=== PATIENT | female | born 1935 | race Caucasian/White ===

== ENCOUNTER 2017-11-07 08:32 | Inpatient (IN) | payer OTHER ==
[~2017-11-07] VITALS: Ht 147.3 cm; Wt 46.8 kg
[~2017-11-07 08:32] MED LIST: BENICAR HCT 401 EAC1 PO; CELEXA40 MG PO; CITALOPRAM HBR40 M1 PO; NEXIUM20 MG PO; NORVASC10 MG PO; Procardia XL,Adalat PO; TENORMIN100 MG PO
[2017-11-07 09:00] LABS: HEMATOCRIT 37.8 % (36.0-46.0); HEMOGLOBIN 13.2 G/DL (11.9-15.5); MCH 30.3 PG (29.0-34.0); MCHC 34.9 G/DL (30.0-36.0); MCV 86.9 FL (83-99); PLATELET COUNT 230 K/uL (156-360); RBC DIS.WIDTH-CV 12.6 % (11.8-14.6); RBC DIS.WIDTH-SD 40.4 % (39-53); RED BLOOD COUNT 4.35 M/uL (3.80-5.20); WHITE BLOOD COUNT 6.1 K/uL (4.1-10.2)
[2017-11-07 09:09] LABS: CHLORIDE 104 mEq/L (99-109); POTASSIUM 4.6 mEq/L (3.7-5.4); SODIUM 136 mEq/L (136-147)
[2017-11-07 09:10] LABS: GLUCOSE 102 mg/dL (70-99)
[2017-11-07 09:14] LABS: CREATININE 0.9 mg/dL (0.6-1.3); GFR ESTIMATE (CALCULATED) > 59 mL/min/
[2017-11-07 09:15] LABS: UREA NITROGEN (BUN) 19 mg/dL (9-23)
[2017-11-07] MEDS ORDERED: CELEXA20 MG PO (13:55)
[2017-11-07] MEDS ORDERED: LITE COAT ASPI325 M1 PO (13:57)
[2017-11-07] MEDS ORDERED: NORVASC10 MG PO (13:57)
[2017-11-07 16:08] LABS: HEMATOCRIT 35.1 % (36.0-46.0); HEMOGLOBIN 12.4 G/DL (11.9-15.5); MCV 86.5 FL (83-99)
[2017-11-07 18:24] VITALS: BP 176/77
[2017-11-07 19:14] VITALS: BP 183/79
[2017-11-07 23:37] VITALS: BP 133/99
[2017-11-08 04:33] VITALS: BP 148/62
[2017-11-08 06:58] LABS: HEMATOCRIT 32.1 % (36.0-46.0); HEMOGLOBIN 10.9 G/DL (11.9-15.5); MCH 29.6 PG (29.0-34.0); MCV 87.2 FL (83-99); PLATELET COUNT 165 K/uL (156-360); RBC DIS.WIDTH-CV 12.5 % (11.8-14.6); RBC DIS.WIDTH-SD 40.3 % (39-53); RED BLOOD COUNT 3.68 M/uL (3.80-5.20); WHITE BLOOD COUNT 7.8 K/uL (4.1-10.2)
[2017-11-08 07:21] LABS: CHLORIDE 101 MEQ/L (99-109); CREATININE 0.9 MG/DL (0.6-1.3); GFR ESTIMATE (CALCULATED) > 59 mL/min/; GLUCOSE 103 mg/dL (70-99); SODIUM 134 MEQ/L (136-147); UREA NITROGEN (BUN) 19 mg/dL (9-23)
[2017-11-08 08:12] VITALS: BP 160/69
[2017-11-08 15:52] VITALS: BP 124/56
[2017-11-09 00:21] VITALS: BP 138/70
[2017-11-09 08:02] VITALS: BP 159/72
[2017-11-09 09:21] LABS: HEMATOCRIT 30.7 % (36.0-46.0); HEMOGLOBIN 10.3 G/DL (11.9-15.5); MCH 29.3 PG (29.0-34.0); MCHC 33.6 G/DL (30.0-36.0); MCV 87.5 FL (83-99); PLATELET COUNT 154 K/uL (156-360); RBC DIS.WIDTH-CV 12.4 % (11.8-14.6); RBC DIS.WIDTH-SD 39.3 % (39-53); RED BLOOD COUNT 3.51 M/uL (3.80-5.20); WHITE BLOOD COUNT 7.8 K/uL (4.1-10.2)
[2017-11-09 09:46] LABS: CHLORIDE 98 MEQ/L (99-109); CREATININE 0.8 MG/DL (0.6-1.3); GFR ESTIMATE (CALCULATED) > 59 mL/min/; GLUCOSE 103 mg/dL (70-99); POTASSIUM 4.1 MEQ/L (3.7-5.4); SODIUM 131 MEQ/L (136-147); UREA NITROGEN (BUN) 20 mg/dL (9-23)
[2017-11-09 16:18] VITALS: BP 152/72
[2017-11-09 23:38] VITALS: BP 146/60
[2017-11-10 06:49] LABS: HEMATOCRIT 27.5 % (36.0-46.0); HEMOGLOBIN 9.6 G/DL (11.9-15.5); MCH 29.7 PG (29.0-34.0); MCHC 34.9 G/DL (30.0-36.0); MCV 85.1 FL (83-99); PLATELET COUNT 161 K/uL (156-360); RBC DIS.WIDTH-SD 37.7 % (39-53); RED BLOOD COUNT 3.23 M/uL (3.80-5.20); WHITE BLOOD COUNT 8.7 K/uL (4.1-10.2)
[2017-11-10 08:13] VITALS: BP 152/91
[2017-11-10] MEDS ORDERED: TRAMADOL HCL50 MG PO (10:44)
[2017-11-10 15:42] VITALS: BP 125/67
[2017-11-10 23:22] VITALS: BP 146/65
[2017-11-11 07:32] VITALS: BP 156/68
[2017-11-11 07:57] LABS: HEMATOCRIT 26.9 % (36.0-46.0); HEMOGLOBIN 9.4 G/DL (11.9-15.5); MCH 29.9 PG (29.0-34.0); MCHC 34.9 G/DL (30.0-36.0); MCV 85.7 FL (83-99); PLATELET COUNT 196 K/uL (156-360); RBC DIS.WIDTH-CV 12.3 % (11.8-14.6); RBC DIS.WIDTH-SD 38.4 % (39-53); RED BLOOD COUNT 3.14 M/uL (3.80-5.20); WHITE BLOOD COUNT 6.9 K/uL (4.1-10.2)
[2017-11-11 08:21] LABS: CHLORIDE 96 MEQ/L (99-109); CREATININE 0.8 MG/DL (0.6-1.3); GFR ESTIMATE (CALCULATED) > 59 mL/min/; GLUCOSE 114 mg/dL (70-99); POTASSIUM 4.3 MEQ/L (3.7-5.4); SODIUM 127 MEQ/L (136-147); UREA NITROGEN (BUN) 26 mg/dL (9-23)
[2017-11-11 15:31] VITALS: BP 128/71
[2017-11-11 23:09] VITALS: BP 150/70
[2017-11-12 06:34] LABS: HEMATOCRIT 28.3 % (36.0-46.0); MCHC 35.3 G/DL (30.0-36.0); PLATELET COUNT 248 K/uL (156-360); RBC DIS.WIDTH-CV 12.3 % (11.8-14.6); RBC DIS.WIDTH-SD 37.5 % (39-53); RED BLOOD COUNT 3.33 M/uL (3.80-5.20); WHITE BLOOD COUNT 7.9 K/uL (4.1-10.2)
[2017-11-12 07:01] LABS: CHLORIDE 94 MEQ/L (99-109); CREATININE 0.7 MG/DL (0.6-1.3); GFR ESTIMATE (CALCULATED) > 59 mL/min/; GLUCOSE 124 mg/dL (70-99); POTASSIUM 4.2 MEQ/L (3.7-5.4); SODIUM 128 MEQ/L (136-147); UREA NITROGEN (BUN) 22 mg/dL (9-23)
[2017-11-12 07:34] VITALS: BP 171/69
[2017-11-12 16:02] VITALS: BP 137/62
[2017-11-12 23:22] VITALS: BP 145/68
[2017-11-13 06:57] LABS: CHLORIDE 97 MEQ/L (99-109); CREATININE 0.9 MG/DL (0.6-1.3); GFR ESTIMATE (CALCULATED) > 59 mL/min/; GLUCOSE 115 mg/dL (70-99); SODIUM 130 MEQ/L (136-147); UREA NITROGEN (BUN) 30 mg/dL (9-23)
[2017-11-13 08:45] VITALS: BP 139/61
[2017-11-13] MEDS ORDERED: SODIUM CHLORIDE1 G1 PO (09:58)
[2017-11-13] MEDS ORDERED: MEGESTROL400 MG/10 PO (09:58)
[2017-11-13] MEDS ORDERED: TRAMADOL HCL50 MG PO (12:22)
== END 2017-11-13 13:16 | DRG 964 ==
LOC: EME 08:32 → EDOF 15:26 → ENRESERV 15:31 → 3EAST 17:53
PROVIDERS: Emergency Medicine; Hospitalist; Internal Medicine; Physician Assistant; Physician Assistant Medical
DX: S32.592A Other specified fracture of left pubis, initial encounter for closed fracture (principal); S72.001A Fracture of unspecified part of neck of right femur, initial encounter for closed fracture; S32.591A Other specified fracture of right pubis, initial encounter for closed fracture; E87.1 Hypo-osmolality and hyponatremia; D64.9 Anemia, unspecified; F32.9 Major depressive disorder, single episode, unspecified; I10 Essential (primary) hypertension; K21.9 Gastro-esophageal reflux disease without esophagitis; E78.5 Hyperlipidemia, unspecified; W10.9XXA Fall (on) (from) unspecified stairs and steps, initial encounter; Z79.82 Long term (current) use of aspirin; E22.2 Syndrome of inappropriate secretion of antidiuretic hormone; Z79.899 Other long term (current) drug therapy; R29.6 Repeated falls
CPT/HCPCS: 70450; 71045; 73502; 73560; 74176; 80048; 83930; 83935; 84300; 85014; 85018; 85027; 85610; 94799; 97530 GP; 99281; 99285; A6214; G0378; J1644; J3010; J7030

== ENCOUNTER 2017-11-24 11:58 | Inpatient (IN) | payer OTHER ==
[2017-11-24] VITALS (7 sets, daily range): BP systolic 139–171; BP diastolic 60–82
[~2017-11-24] VITALS: Ht 149.9 cm; Wt 41.4 kg
[~2017-11-24 11:58] MED LIST changes: +CELEXA20 MG PO; +LITE COAT ASPI325 M1 PO; +MEGESTROL400 MG/10 PO; +SODIUM CHLORIDE1 G1 PO; +TRAMADOL HCL50 MG PO
[2017-11-24 12:26] LABS: HEMATOCRIT 20.1 % (36.0-46.0); MCH 29.6 PG (29.0-34.0); MCHC 34.3 G/DL (30.0-36.0); MCV 86.3 FL (83-99); PLATELET COUNT 531 K/uL (156-360); RBC DIS.WIDTH-CV 13.8 % (11.8-14.6); RED BLOOD COUNT 2.33 M/uL (3.80-5.20); WHITE BLOOD COUNT 8.8 K/uL (4.1-10.2)
[2017-11-24 12:27] LABS: HEMOGLOBIN 6.9 G/DL (11.9-15.5)
[2017-11-24 12:33] LABS: INTER. NORMALIZED RATIO 1.2
[2017-11-24 12:35] LABS: ALBUMIN 2.9 g/dL (3.2-4.8); CHLORIDE 105 mEq/L (99-109); SODIUM 133 mEq/L (136-147)
[2017-11-24 12:36] LABS: PTT 26.6 SEC (25-37)
[2017-11-24 12:37] LABS: GLUCOSE 105 mg/dL (70-99); TOTAL PROTEIN 5.5 g/dL (6.4-8.3)
[2017-11-24 12:39] LABS: TOTAL BILIRUBIN 0.4 mg/dL (0.0-1.0)
[2017-11-24 12:41] LABS: ALKALINE PHOSPHATASE 122 IU/L (3-129); CREATININE 0.7 mg/dL (0.6-1.3); GFR ESTIMATE (CALCULATED) > 59 mL/min/
[2017-11-24 12:42] LABS: UREA NITROGEN (BUN) 24 mg/dL (9-23)
[2017-11-24 12:43] LABS: AST (GOT) 14 IU/L (2-34)
[2017-11-24 12:44] LABS: ALT (GPT) 7 IU/L (3-49)
[2017-11-24 12:47] LABS: TROP-I INTERPRETATION NEGATIVE; TROPONIN-I < 0.01 ng/mL (0.0-0.30)
[2017-11-24] MEDS ORDERED: MILK OF MAGN PO (13:27)
[2017-11-24] MEDS ORDERED: DULCOLAX10 MG PR (13:30)
[2017-11-24] MEDS ORDERED: REMEDY CALAZIM113 G2 TP (13:32)
[2017-11-24] MEDS ORDERED: MELATONIN3 MG PO (13:34)
[2017-11-24] MEDS ORDERED: TRAMADOL HCL50 MG PO (13:36)
[2017-11-24] MEDS ORDERED: PAIN & FEVER500 MG PO (13:36)
[2017-11-24] MEDS ORDERED: COLACE100 MG PO (13:37)
[2017-11-25 00:21] VITALS: BP 155/62
[2017-11-25 03:42] VITALS: BP 150/68
[2017-11-25 05:53] LABS: HEMATOCRIT 24.8 % (36.0-46.0); HEMOGLOBIN 8.4 G/DL (11.9-15.5); MCH 28.6 PG (29.0-34.0); MCHC 33.9 G/DL (30.0-36.0); MCV 84.4 FL (83-99); PLATELET COUNT 483 K/uL (156-360); RBC DIS.WIDTH-CV 14.4 % (11.8-14.6); RBC DIS.WIDTH-SD 44.2 % (39-53); WHITE BLOOD COUNT 7.7 K/uL (4.1-10.2)
[2017-11-25 05:54] LABS: RED BLOOD COUNT 2.94 M/uL (3.80-5.20)
[2017-11-25 06:23] LABS: CHLORIDE 105 MEQ/L (99-109); CREATININE 0.6 MG/DL (0.6-1.3); GFR ESTIMATE (CALCULATED) > 59 mL/min/; GLUCOSE 73 mg/dL (70-99); POTASSIUM 3.6 MEQ/L (3.7-5.4); SODIUM 132 MEQ/L (136-147); UREA NITROGEN (BUN) 13 mg/dL (9-23)
[2017-11-25 07:22] VITALS: BP 151/76
[2017-11-25 10:03] LABS: STOOL OCCULT BLD 1ST SPECIMEN POSITIVE
[2017-11-25 15:24] VITALS: BP 144/89
[2017-11-25 19:48] VITALS: BP 138/80
[2017-11-26] VITALS (7 sets, daily range): BP systolic 134–168; BP diastolic 61–70
[2017-11-27 03:43] VITALS: BP 150/78
[2017-11-27 06:23] LABS: HEMATOCRIT 24.1 % (36.0-46.0); HEMOGLOBIN 8.1 G/DL (11.9-15.5); MCH 29.1 PG (29.0-34.0); MCHC 33.6 G/DL (30.0-36.0); MCV 86.7 FL (83-99); PLATELET COUNT 524 K/uL (156-360); RBC DIS.WIDTH-CV 14.6 % (11.8-14.6); RBC DIS.WIDTH-SD 45.2 % (39-53); RED BLOOD COUNT 2.78 M/uL (3.80-5.20); WHITE BLOOD COUNT 14.3 K/uL (4.1-10.2)
[2017-11-27 06:51] LABS: CHLORIDE 100 MEQ/L (99-109); CREATININE 0.6 MG/DL (0.6-1.3); GFR ESTIMATE (CALCULATED) > 59 mL/min/; GLUCOSE 76 mg/dL (70-99); SODIUM 129 MEQ/L (136-147); UREA NITROGEN (BUN) 13 mg/dL (9-23)
[2017-11-27 07:38] VITALS: BP 138/64
[2017-11-27 10:59] VITALS: BP 135/64
[2017-11-27 15:52] VITALS: BP 134/63
[2017-11-27] MEDS ORDERED: ATENOLOL100 MG PO (19:22)
[2017-11-27] MEDS ORDERED: VALACYCLOVIR500 MG PO (19:22)
== END 2017-11-27 20:04 | disposition home or self-care (01) | DRG 812 ==
LOC: EME 11:58 → EDOF 12:40 → 2EAST 12:40 → ENRESERV 12:50 → 2EAST 15:57
PROVIDERS: Emergency Medicine; Family Medicine
PROC: 30233N1 Transfusion of Nonautologous Red Blood Cells into Peripheral Vein, Percutaneous Approach (ICD-10-PCS; principal; 2017-11-24)
PROC: 0DJ08ZZ Inspection of Upper Intestinal Tract, Via Natural or Artificial Opening Endoscopic (ICD-10-PCS; 2017-11-26)
DX: D62 Acute posthemorrhagic anemia (principal); F32.9 Major depressive disorder, single episode, unspecified; I10 Essential (primary) hypertension; K21.9 Gastro-esophageal reflux disease without esophagitis; E78.5 Hyperlipidemia, unspecified; E87.1 Hypo-osmolality and hyponatremia; K92.2 Gastrointestinal hemorrhage, unspecified; M19.90 Unspecified osteoarthritis, unspecified site; S72.101D Unspecified trochanteric fracture of right femur, subsequent encounter for closed fracture with routine healing; L50.9 Urticaria, unspecified; Z53.9 Procedure and treatment not carried out, unspecified reason; T80.92XA Unspecified transfusion reaction, initial encounter; Z68.1 Body mass index [BMI] 19.9 or less, adult; S32.511D Fracture of superior rim of right pubis, subsequent encounter for fracture with routine healing; W18.30XD Fall on same level, unspecified, subsequent encounter; K44.9 Diaphragmatic hernia without obstruction or gangrene; Z53.09 Procedure and treatment not carried out because of other contraindication; Z95.5 Presence of coronary angioplasty implant and graft; Z86.718 Personal history of other venous thrombosis and embolism
CPT/HCPCS: 74176; 80048; 80053; 82272; 84484; 85027; 85610; 85730; 86850; 86880; 86900; 86901; 86920; 92610 GN; 93005; C9113; J2765; J7030; P9016

== ENCOUNTER 2017-12-01 16:38 | Inpatient (IN) | payer OTHER ==
[~2017-12-01] VITALS: Ht 149.9 cm; Wt 41.0 kg
[~2017-12-01 16:38] MED LIST changes: +ATENOLOL100 MG PO; +COLACE100 MG PO; +DULCOLAX10 MG PR; +MELATONIN3 MG PO; +MILK OF MAGN PO; +PAIN & FEVER500 MG PO; +REMEDY CALAZIM113 G2 TP; +VALACYCLOVIR500 MG PO
[2017-12-01 18:05] LABS: HEMATOCRIT 17.7 % (36.0-46.0); HEMOGLOBIN 6.1 G/DL (11.9-15.5); MCH 29.9 PG (29.0-34.0); MCHC 34.5 G/DL (30.0-36.0); MCV 86.8 FL (83-99); PLATELET COUNT 536 K/uL (156-360); RBC DIS.WIDTH-CV 15.4 % (11.8-14.6); RBC DIS.WIDTH-SD 47.3 % (39-53); RED BLOOD COUNT 2.04 M/uL (3.80-5.20); WHITE BLOOD COUNT 10.8 K/uL (4.1-10.2)
[2017-12-01 18:10] LABS: CHLORIDE 102 mEq/L (99-109); SODIUM 131 mEq/L (136-147)
[2017-12-01 18:12] LABS: GLUCOSE 98 mg/dL (70-99)
[2017-12-01 18:16] LABS: CREATININE 0.8 mg/dL (0.6-1.3); GFR ESTIMATE (CALCULATED) > 59 mL/min/
[2017-12-01 18:17] LABS: UREA NITROGEN (BUN) 21 mg/dL (9-23)
[2017-12-01 18:20] LABS: TROP-I INTERPRETATION NEGATIVE; TROPONIN-I < 0.01 ng/mL (0.0-0.30)
[2017-12-01] MEDS ORDERED: BENGAY GREASELE57 GM TP (19:26)
[2017-12-01] MEDS ORDERED: FEOSOL325 MG PO (19:26)
[2017-12-01] MEDS ORDERED: CENTRUM SILVER1 EAC4 PO (19:27)
[2017-12-01 19:43] VITALS: BP 118/59
[2017-12-01 20:01] VITALS: BP 138/64
[2017-12-01 21:01] VITALS: BP 144/63
[2017-12-01 21:49] VITALS: BP 136/66
[2017-12-01 23:02] VITALS: BP 152/65
[2017-12-01 23:51] VITALS: BP 152/65
[2017-12-02 05:43] LABS: HEMATOCRIT 26.5 % (36.0-46.0); MCH 29.6 PG (29.0-34.0); MCHC 34.3 G/DL (30.0-36.0); MCV 86.3 FL (83-99); PLATELET COUNT 472 K/uL (156-360); RBC DIS.WIDTH-CV 14.9 % (11.8-14.6); WHITE BLOOD COUNT 8.6 K/uL (4.1-10.2)
[2017-12-02 06:01] LABS: CHLORIDE 102 MEQ/L (99-109); CREATININE 0.7 MG/DL (0.6-1.3); GFR ESTIMATE (CALCULATED) > 59 mL/min/; GLUCOSE 69 mg/dL (70-99); POTASSIUM 3.8 MEQ/L (3.7-5.4); SODIUM 131 MEQ/L (136-147); UREA NITROGEN (BUN) 16 mg/dL (9-23)
[2017-12-02 06:22] LABS: HEMOGLOBIN 9.1 G/DL (11.9-15.5); RED BLOOD COUNT 3.07 M/uL (3.80-5.20)
[2017-12-02 07:54] LABS: FOLIC ACID (FOLATE) 13.1 NG/ML (5.0-22.0)
[2017-12-02 07:56] VITALS: BP 145/68
[2017-12-02 12:12] VITALS: BP 131/65
[2017-12-02 15:29] VITALS: BP 130/62
[2017-12-02 16:48] LABS: HEMATOCRIT 26.3 % (36.0-46.0); HEMOGLOBIN 9.1 G/DL (11.9-15.5); MCHC 34.6 G/DL (30.0-36.0); MCV 86.8 FL (83-99); NRBC (%) 0.4 /100 WBC (0-0); PLATELET COUNT 485 K/uL (156-360); RBC DIS.WIDTH-CV 15.8 % (11.8-14.6); RBC DIS.WIDTH-SD 47.3 % (39-53); RED BLOOD COUNT 3.03 M/uL (3.80-5.20); WHITE BLOOD COUNT 7.7 K/uL (4.1-10.2)
[2017-12-02 19:37] VITALS: BP 135/64
[2017-12-03] VITALS: BP 150/94
[2017-12-03 04:00] VITALS: BP 148/69
[2017-12-03 07:02] LABS: CHLORIDE 104 MEQ/L (99-109); CREATININE 0.5 MG/DL (0.6-1.3); GFR ESTIMATE (CALCULATED) > 59 mL/min/; POTASSIUM 3.7 MEQ/L (3.7-5.4); SODIUM 133 MEQ/L (136-147); UREA NITROGEN (BUN) 17 mg/dL (9-23)
[2017-12-03 07:03] LABS: GLUCOSE 90 mg/dL (70-99)
[2017-12-03 07:43] VITALS: BP 147/69
[2017-12-03 12:12] VITALS: BP 125/62
[2017-12-03 15:52] VITALS: BP 142/64
[2017-12-03 19:44] VITALS: BP 136/67
[2017-12-04] VITALS: BP 134/66
[2017-12-04 03:41] VITALS: BP 157/72
[2017-12-04 05:18] LABS: BASOPHIL (%) 0.6 % (0-1); BASOPHIL COUNT 0.1 K/uL (0-0.1); EOSINOPHIL (%) 2.1 % (0-5); EOSINOPHIL COUNT 0.2 K/uL (0-0.3); HEMATOCRIT 26.4 % (36.0-46.0); HEMOGLOBIN 8.9 G/DL (11.9-15.5); IMMATURE GRANULOCYTE (%) 1.8 % (0.0-0.7); LYMPHOCYTE (%) 12.2 % (15-42); MCH 30.2 PG (29.0-34.0); MCHC 33.7 G/DL (30.0-36.0); MCV 89.5 FL (83-99); MONOCYTE (%) 8.6 % (3-12); MONOCYTE COUNT 0.7 K/uL (0-0.8); NEUTROPHIL (%) 74.7 % (45-76); NEUTROPHIL COUNT 6.2 K/uL (1.8-6.4); PLATELET COUNT 621 K/uL (156-360); RBC DIS.WIDTH-CV 16.8 % (11.8-14.6); RED BLOOD COUNT 2.95 M/uL (3.80-5.20); WHITE BLOOD COUNT 8.3 K/uL (4.1-10.2)
[2017-12-04 06:20] LABS: CHLORIDE 103 MEQ/L (99-109); CREATININE 0.4 MG/DL (0.6-1.3); GFR ESTIMATE (CALCULATED) > 59 mL/min/; GLUCOSE 67 mg/dL (70-99); POTASSIUM 3.6 MEQ/L (3.7-5.4); SODIUM 135 MEQ/L (136-147); UREA NITROGEN (BUN) 11 mg/dL (9-23)
[2017-12-04 07:45] VITALS: BP 144/67
[2017-12-04 11:48] VITALS: BP 168/72
[2017-12-05] VITALS (12 sets, daily range): BP systolic 123–163; BP diastolic 60–88
[2017-12-05 06:13] LABS: BASOPHIL (%) 0.2 % (0-1); EOSINOPHIL (%) 0.2 % (0-5); HEMATOCRIT 20.8 % (36.0-46.0); IMMATURE GRANULOCYTE (%) 0.9 % (0.0-0.7); LYMPHOCYTE (%) 11.4 % (15-42); LYMPHOCYTE COUNT 0.7 K/uL (1.0-2.8); MCHC 33.2 G/DL (30.0-36.0); MCV 90.4 FL (83-99); MONOCYTE (%) 7.3 % (3-12); MONOCYTE COUNT 0.5 K/uL (0-0.8); NEUTROPHIL COUNT 5.2 K/uL (1.8-6.4); PLATELET COUNT 456 K/uL (156-360); RBC DIS.WIDTH-SD 53.3 % (39-53); WHITE BLOOD COUNT 6.4 K/uL (4.1-10.2)
[2017-12-05 06:17] LABS: CHLORIDE 104 MEQ/L (99-109); CREATININE 0.6 MG/DL (0.6-1.3); GFR ESTIMATE (CALCULATED) > 59 mL/min/; POTASSIUM 4.3 MEQ/L (3.7-5.4); SODIUM 131 MEQ/L (136-147)
[2017-12-05 06:19] LABS: GLUCOSE 134 mg/dL (70-99); UREA NITROGEN (BUN) 23 mg/dL (9-23)
[2017-12-05 06:20] LABS: HEMOGLOBIN 6.9 G/DL (11.9-15.5)
[2017-12-06] VITALS: BP 154/73
[2017-12-06 05:47] LABS: BASOPHIL (%) 0.5 % (0-1); BASOPHIL COUNT 0.1 K/uL (0-0.1); EOSINOPHIL (%) 4.4 % (0-5); EOSINOPHIL COUNT 0.4 K/uL (0-0.3); HEMATOCRIT 31.7 % (36.0-46.0); IMMATURE GRANULOCYTE (%) 1.1 % (0.0-0.7); LYMPHOCYTE (%) 11.2 % (15-42); LYMPHOCYTE COUNT 1.1 K/uL (1.0-2.8); MCH 28.8 PG (29.0-34.0); MCHC 34.1 G/DL (30.0-36.0); MONOCYTE (%) 6.6 % (3-12); MONOCYTE COUNT 0.6 K/uL (0-0.8); NEUTROPHIL (%) 76.2 % (45-76); NEUTROPHIL COUNT 7.2 K/uL (1.8-6.4); PLATELET COUNT 359 K/uL (156-360); RBC DIS.WIDTH-CV 19.2 % (11.8-14.6); RBC DIS.WIDTH-SD 57.3 % (39-53); WHITE BLOOD COUNT 9.5 K/uL (4.1-10.2)
[2017-12-06 05:48] LABS: HEMOGLOBIN 10.8 G/DL (11.9-15.5); MCV 84.5 FL (83-99); RED BLOOD COUNT 3.75 M/uL (3.80-5.20)
[2017-12-06 06:01] LABS: CHLORIDE 105 MEQ/L (99-109); CREATININE 0.5 MG/DL (0.6-1.3); GFR ESTIMATE (CALCULATED) > 59 mL/min/; POTASSIUM 3.9 MEQ/L (3.7-5.4); SODIUM 132 MEQ/L (136-147); UREA NITROGEN (BUN) 17 mg/dL (9-23)
[2017-12-06 06:03] LABS: GLUCOSE 93 mg/dL (70-99)
[2017-12-06 07:08] VITALS: BP 140/63
[2017-12-06 15:02] VITALS: BP 133/65
[2017-12-06 18:16] LABS: HEMATOCRIT 33.7 % (36.0-46.0); HEMOGLOBIN 11.3 G/DL (11.9-15.5); MCH 28.5 PG (29.0-34.0); MCHC 33.5 G/DL (30.0-36.0); MCV 84.9 FL (83-99); PLATELET COUNT 399 K/uL (156-360); RBC DIS.WIDTH-CV 19.5 % (11.8-14.6); RED BLOOD COUNT 3.97 M/uL (3.80-5.20); WHITE BLOOD COUNT 9.9 K/uL (4.1-10.2)
[2017-12-06 23:50] VITALS: BP 139/65
[2017-12-07 06:28] LABS: BASOPHIL (%) 0.6 % (0-1); BASOPHIL COUNT 0.1 K/uL (0-0.1); EOSINOPHIL (%) 2.9 % (0-5); EOSINOPHIL COUNT 0.4 K/uL (0-0.3); HEMATOCRIT 33.7 % (36.0-46.0); HEMOGLOBIN 11.4 G/DL (11.9-15.5); LYMPHOCYTE (%) 8.8 % (15-42); LYMPHOCYTE COUNT 1.1 K/uL (1.0-2.8); MCH 28.7 PG (29.0-34.0); MCHC 33.8 G/DL (30.0-36.0); MCV 84.9 FL (83-99); MONOCYTE (%) 7.1 % (3-12); MONOCYTE COUNT 0.9 K/uL (0-0.8); NEUTROPHIL (%) 79.6 % (45-76); PLATELET COUNT 405 K/uL (156-360); RBC DIS.WIDTH-CV 19.1 % (11.8-14.6); RBC DIS.WIDTH-SD 57.4 % (39-53); RED BLOOD COUNT 3.97 M/uL (3.80-5.20); WHITE BLOOD COUNT 12.6 K/uL (4.1-10.2)
[2017-12-07 06:48] LABS: ALBUMIN 2.4 G/DL (3.2-4.8); CHLORIDE 105 MEQ/L (99-109); CREATININE 0.5 MG/DL (0.6-1.3); GFR ESTIMATE (CALCULATED) > 59 mL/min/; GLUCOSE 95 mg/dL (70-99); PHOSPHORUS 2.7 mg/dL (2.5-4.9); POTASSIUM 3.8 MEQ/L (3.7-5.4); SODIUM 132 MEQ/L (136-147); UREA NITROGEN (BUN) 13 mg/dL (9-23)
[2017-12-07 07:04] VITALS: BP 150/67
[2017-12-07 15:00] VITALS: BP 119/58
[2017-12-08 02:24] VITALS: BP 158/70
[2017-12-08 05:40] LABS: HEMATOCRIT 32.9 % (36.0-46.0); HEMOGLOBIN 10.9 G/DL (11.9-15.5); MCH 28.4 PG (29.0-34.0); MCHC 33.1 G/DL (30.0-36.0); MCV 85.7 FL (83-99); PLATELET COUNT 399 K/uL (156-360); RBC DIS.WIDTH-CV 18.6 % (11.8-14.6); RBC DIS.WIDTH-SD 57.5 % (39-53); RED BLOOD COUNT 3.84 M/uL (3.80-5.20); WHITE BLOOD COUNT 10.9 K/uL (4.1-10.2)
[2017-12-08 06:00] LABS: CHLORIDE 104 MEQ/L (99-109); CREATININE 0.5 MG/DL (0.6-1.3); GFR ESTIMATE (CALCULATED) > 59 mL/min/; GLUCOSE 89 mg/dL (70-99); POTASSIUM 3.6 MEQ/L (3.7-5.4); SODIUM 133 MEQ/L (136-147); UREA NITROGEN (BUN) 10 mg/dL (9-23)
[2017-12-08 07:55] VITALS: BP 135/67
[2017-12-08] MEDS ORDERED: SUCRALFATE1 GM PO (13:40)
[2017-12-08] MEDS ORDERED: ATENOLOL100 MG PO (13:40)
[2017-12-08 15:11] VITALS: BP 113/72
== END 2017-12-08 16:24 | DRG 378 ==
LOC: EME 16:38 → 5SOUTH 21:39 → EDOF 21:39 → ENRESERV 21:40 → 5SOUTH 22:51
PROVIDERS: Hospitalist; Internal Medicine; Internal Medicine Gastroenterology
PROC: 30233N1 Transfusion of Nonautologous Red Blood Cells into Peripheral Vein, Percutaneous Approach (ICD-10-PCS; principal; 2017-12-01)
PROC: 0DJ08ZZ Inspection of Upper Intestinal Tract, Via Natural or Artificial Opening Endoscopic (ICD-10-PCS; 2017-12-03)
PROC: 0DC18ZZ Extirpation of Matter from Upper Esophagus, Via Natural or Artificial Opening Endoscopic (ICD-10-PCS; 2017-12-04)
DX: K25.4 Chronic or unspecified gastric ulcer with hemorrhage (principal); D50.0 Iron deficiency anemia secondary to blood loss (chronic); E22.2 Syndrome of inappropriate secretion of antidiuretic hormone; K92.2 Gastrointestinal hemorrhage, unspecified; K44.9 Diaphragmatic hernia without obstruction or gangrene; K21.9 Gastro-esophageal reflux disease without esophagitis; I10 Essential (primary) hypertension; F32.9 Major depressive disorder, single episode, unspecified; E86.0 Dehydration; E78.5 Hyperlipidemia, unspecified; R63.6 Underweight; E87.6 Hypokalemia; Z68.1 Body mass index [BMI] 19.9 or less, adult; T18.128A Food in esophagus causing other injury, initial encounter; X58.XXXA Exposure to other specified factors, initial encounter; Y93.89 Activity, other specified; Y92.89 Other specified places as the place of occurrence of the external cause; Z79.82 Long term (current) use of aspirin; Z79.899 Other long term (current) drug therapy
CPT/HCPCS: 36415; 71045; 71046; 74018; 80048; 80048 91; 80069; 82306; 82607; 82746; 83605; 84484; 85025; 85027; 86850; 86900; 86901; 86920; 93005; 99281; 99285; A6214; C9113; J0330; J1100; J1200; J1885; J2405; J2765; J3010; J3480; J7030; J7050; P9016